=== PATIENT | female | born 1940 | race Caucasian/White ===

== ENCOUNTER → 2016-09-19 | Outpatient (CLI) | payer MEDICARE, OTHER ==
--- NOTE | 2016-09-19 10:15 | MM ---
Reason for exam: additional evaluation requested from prior study. Last mammogram was performed 7 months ago. History: Patient is postmenopausal, has history of breast cancer at age 74, and history of other cancer. Malignant US breast localization RT of the right breast, January 10, 2015. Malignant US biopsy breast VAD RT of the right breast, December 30, 2014. Benign US RT VAD breast biopsy of the right breast, May 27, 2012. Reductions of both breasts, 1982. Excisional biopsy of the right breast. Took estrogen for 2 years beginning at age 38. Physical Findings: Nurse did not find any significant physical abnormalities on exam. MG 3D Diag Mammo W/Cad MAN Bilateral CC and MLO view(s) were taken. XCCL view(s) were taken of the right breast. Prior study comparison: February 28, 2016, bilateral MG 3d diag mammo w/cad MAN. September 19, 2015, bilateral MG 3d diag mammo w/cad MAN. Previous lumpectomy in the right breast. Chronic asymmetry in the left breast. No significant new findings when compared with previous films. These results were verbally communicated with the patient and result sheet given to the patient on 09/19/16. ASSESSMENT: Benign, BI-RAD 2 RECOMMENDATION: Routine screening mammogram of both breasts in 1 year.
== END | disposition home or self-care (01) ==
LOC: RADMAMWWP 09:16
PROVIDERS: ATTEND Radiology Diagnostic Radiology
DX: Z85.3 Personal history of malignant neoplasm of breast (principal)
CPT/HCPCS: G0204; G0279

== ENCOUNTER → 2017-09-24 | Outpatient (CLI) | payer MEDICARE, OTHER ==
--- NOTE | 2017-09-24 12:06 | MM ---
Reason for exam: additional evaluation requested from prior study. Last mammogram was performed 1 year ago. History: Patient is postmenopausal, has history of breast cancer at age 74, and history of other cancer. Malignant US breast localization RT of the right breast, January 10, 2015. Malignant US biopsy breast VAD RT of the right breast, December 30, 2014. Benign US RT VAD breast biopsy of the right breast, May 27, 2012. Reductions of both breasts, 1982. Excisional biopsy of the right breast. Took estrogen for 2 years beginning at age 38. Physical Findings: Nurse did not find any significant physical abnormalities on exam. MG 3D Diag Mammo W/Cad MAN Bilateral CC and MLO view(s) were taken. XCCL view(s) were taken of the right breast. Prior study comparison: September 19, 2016, bilateral MG 3d diag mammo w/cad MAN. February 28, 2016, bilateral MG 3d diag mammo w/cad MAN. There are scattered fibroglandular densities. Stable left focal asymmetry. No suspicious abnormality. Post surgical change on the right breast. These results were verbally communicated with the patient and result sheet given to the patient on 09/24/17. ASSESSMENT: Benign, BI-RAD 2 RECOMMENDATION: Follow-up diagnostic mammogram of both breasts in 1 year.
== END | disposition home or self-care (01) ==
LOC: RADMAMWWP 10:49
PROVIDERS: ATTEND Internal Medicine Hematology & Oncology
DX: Z08 Encounter for follow-up examination after completed treatment for malignant neoplasm (principal); Z85.3 Personal history of malignant neoplasm of breast
CPT/HCPCS: 77066; G0279; 77062

== ENCOUNTER 2017-12-17 14:49 | Emergency (ER) | payer MEDICARE, OTHER ==
[2017-12-17 14:59] VITALS: BP 116/61; PULSE 79; RESP 18; TEMP 98.6
[2017-12-17] MEDS ORDERED: SODIUM CHLORIDE 0.9% 1,000 ML IV STA (15:13)
--- NOTE | 2017-12-17 15:16 | ED ---
General Adult HPI - General Chief complaint: Syncope Stated complaint: near syncope Time Seen by Provider: 12/17/17 14:54 Source: EMS, RN notes reviewed Mode of arrival: EMS Limitations: altered mental status - History of Present Illness Initial comments: Patient is a pleasant 77-year-old female presenting to the emergency Department with near syncopal episode. Patient states she has had some episodes previously that were somewhat similar associated with low blood pressure. Today patient [place] when she felt like she was about to pass out. Patient was helped to the ground by bystanders. Patient has no complaints at this time and feels fine. No headache. No confusion. Patient does have history of dementia. No chest pain or dyspnea. No abdominal pain or weakness. - Related Data Home Medications Medication Instructions Recorded Confirmed Allopurinol [Zyloprim] 100 mg PO DAILY@1200 09/08/14 12/17/17 DULoxetine HCL [Cymbalta] 30 mg PO DAILY 09/08/14 12/17/17 Divalproex Sodium [Depakote] 125 mg PO BID 09/08/14 12/17/17 Famotidine [Pepcid] 20 mg PO HS 09/08/14 12/17/17 Folic Acid 1 mg PO DAILY@1200 09/08/14 12/17/17 Omeprazole [PriLOSEC] 20 mg PO AC-BRKFST 09/08/14 12/17/17 Milk Thistle 1,000 mg PO DAILY@1200 05/05/15 12/17/17 Aspirin EC [Ecotrin Low Dose] 81 mg PO DAILY 03/12/17 12/17/17 Levothyroxine Sodium [Synthroid] 50 mcg PO DAILY@1200 03/12/17 12/17/17 Vitamin B Complex 1 cap PO HS 03/12/17 12/17/17 Calcium Carbonate 1,000 mg PO DAILY 12/17/17 12/17/17 Allergies Allergy/AdvReac Type Severity Reaction Status Date / Time No Known Allergies Allergy Verified 12/17/17 16:05 Review of Systems ROS Statement: Those systems with pertinent positive or pertinent negative responses have been documented in the HPI. ROS Other: All systems not noted in ROS Statement are negative. Constitutional: Denies: fever Eyes: Denies: eye pain ENT: Denies: ear pain Respiratory: Denies: cough Cardiovascular: Denies: chest pain Endocrine: Denies: fatigue Gastrointestinal: Denies: abdominal pain Genitourinary: Denies: dysuria Musculoskeletal: Denies: back pain Skin: Denies: rash Neurological: Denies: headache, weakness Past Medical History Past Medical History: Cancer, Dementia, GERD/Reflux, Hypertension, Liver Disease , Skin Disorder Additional Past Medical History / Comment(s): 2016 closed fracture R hipD/T fall. PSORIASIS, GOUT, hiatal hernia, skin cancer with removal, breast cancer with lumpectomy and radiation, bleeding gastric ulcer 1974, gastritis, esophagitis, diverticulosis, hepatitis unknown type but thinks it may have been hep C from a blood transfusion. History of Any Multi-Drug Resistant Organisms: None Reported Past Surgical History: Appendectomy, Breast Surgery, Cholecystectomy, Hysterectomy, Joint Replacement, Tonsillectomy Additional Past Surgical History / Comment(s): rt leg vein stipping, surgery bleeding ulcer, EGDs with bx and colonoscopies with last time being 08/2014, R breast lumpectomy, cataracts bilaterally with lens implants, rt knee replacement, bilateral breast recuctions. rt femoral head replacement arthroplasty. Past Anesthesia/Blood Transfusion Reactions: No Reported Reaction Additional Past Anesthesia/Blood Transfusion Reaction / Comment(s): Pt received blood in 1974 and contracted hepatitis. Past Psychological History: No Psychological Hx Reported Smoking Status: Never smoker Past Alcohol Use History: Occasional Past Drug Use History: None Reported - Past Family History Father Family Medical History: No Reported History Additional Family Medical History / Comment(s): Father lived to be in his early 90's. Mother Family Medical History: No Reported History Additional Family Medical History / Comment(s): Pt does not know mother's health hx well- mother in her 70's General Exam Limitations: altered mental status General appearance: alert, in no apparent distress Head exam: Present: atraumatic Eye exam: Present: normal appearance, PERRL, EOMI ENT exam: Present: normal oropharynx Neck exam: Present: normal inspection Respiratory exam: Present: normal lung sounds bilaterally Cardiovascular Exam: Present: regular rate, normal rhythm Expanded Peripheral pulses: 2+: Radial (R), Radial (L), Posterior Tibialis (R), Posterior Tibialis (L), Dorsalis Pedis (R), Dorsalis Pedis (L) GI/Abdominal exam: Present: soft. Absent: tenderness Extremities exam: Present: normal inspection. Absent: pedal edema, calf tenderness Neurological exam: Present: alert, oriented X3, CN II-XII intact. Absent: motor sensory deficit Expanded Neurological exam: Present: protecting the airway Patient oriented to: Present: person, place, time Speech: Present: fluid speech Cranial nerves: EOM's Intact: Normal, Facial Sensation: Normal Cerebellar function: Finger to Nose: Normal Sensory exam: Upper Extremity Light Touch: Normal, Lower Extremity Light Touch: Normal Motor strength exam: RUE: 5, LUE: 5, RLE: 5, LLE: 5 Eye Response: (4) open spontaneously Motor Response: (6) obeys commands Verbal Response: (5) oriented Psychiatric exam: Present: normal affect, normal mood Skin exam: Present: normal color Course Vital Signs 12/17/17 14:52 Temperature 98.6 F Pulse Rate 79 Respiratory 18 Rate Blood Pressure 116/61 O2 Sat by Pulse 99 Oximetry EKG Findings - EKG Comments: EKG Findings:: Normal sinus rhythm at 69. OH 162. QRS 76. QT 438. QTC 469. Left axis. Low QRS voltage. Inferior Q waves. No acute ST change. Medical Decision Making - Medical Decision Making Patient reevaluated and resting comfortably in bed. Patient remained symptom- free. Patient and family offered admission however would prefer discharge. There is advised need for close follow-up. Patient states last episode she had similar to this was around 6 months ago where she actually fully passed out and was also evaluated at that time. - Lab Data Result diagrams: 12/17/17 15:03 12/17/17 15:03 Lab Results 12/17/17 12/17/17 12/17/17 Range/Units 15:03 15:03 15:03 WBC 4.5 (3.8-10.6) k/uL RBC 3.62 L (3.80-5.40) m/uL Hgb 12.4 (11.4-16.0) gm/dL Hct 37.0 (34.0-46.0) % MCV 102.3 H (80.0-100.0) fL MCH 34.3 (25.0-35.0) pg MCHC 33.5 (31.0-37.0) g/dL RDW 13.1 (11.5-15.5) % Plt Count 129 L (150-450) k/uL Neutrophils % 61 % Lymphocytes % 27 % Monocytes % 7 % Eosinophils % 2 % Basophils % 1 % Neutrophils # 2.7 (1.3-7.7) k/uL Lymphocytes # 1.2 (1.0-4.8) k/uL Monocytes # 0.3 (0-1.0) k/uL Eosinophils # 0.1 (0-0.7) k/uL Basophils # 0.0 (0-0.2) k/uL Macrocytosis Slight PT (9.0-12.0) sec INR (<1.2) APTT (22.0-30.0) sec Sodium 137 (137-145) mmol/L Potassium 4.7 (3.5-5.1) mmol/L Chloride 103 (98-107) mmol/L Carbon Dioxide 19 L (22-30) mmol/L Anion Gap 15 mmol/L BUN 16 (7-17) mg/dL Creatinine 1.04 (0.52-1.04) mg/dL Est GFR (CKD-EPI)AfAm 60 (>60 ml/min/1.73 sqM) Est GFR (CKD-EPI)NonAf 52 (>60 ml/min/1.73 sqM) Glucose 83 (74-99) mg/dL Calcium 8.6 (8.4-10.2) mg/dL Total Bilirubin 0.5 (0.2-1.3) mg/dL AST 60 H (14-36) U/L ALT 39 (9-52) U/L Alkaline Phosphatase 57 (38-126) U/L Total Creatine Kinase 45 (30-135) U/L CK-MB (CK-2) 1.0 (0.0-2.4) ng/mL CK-MB (CK-2) Rel Index 2.2 Troponin I <0.012 (0.000-0.034) ng/mL Total Protein 6.8 (6.3-8.2) g/dL Albumin 3.9 (3.5-5.0) g/dL 12/17/17 Range/Units 15:03 WBC (3.8-10.6) k/uL RBC (3.80-5.40) m/uL Hgb (11.4-16.0) gm/dL Hct (34.0-46.0) % MCV (80.0-100.0) fL MCH (25.0-35.0) pg MCHC (31.0-37.0) g/dL RDW (11.5-15.5) % Plt Count (150-450) k/uL Neutrophils % % Lymphocytes % % Monocytes % % Eosinophils % % Basophils % % Neutrophils # (1.3-7.7) k/uL Lymphocytes # (1.0-4.8) k/uL Monocytes # (0-1.0) k/uL Eosinophils # (0-0.7) k/uL Basophils # (0-0.2) k/uL Macrocytosis PT 10.9 (9.0-12.0) sec INR 1.1 (<1.2) APTT 18.5 L (22.0-30.0) sec Sodium (137-145) mmol/L Potassium (3.5-5.1) mmol/L Chloride (98-107) mmol/L Carbon Dioxide (22-30) mmol/L Anion Gap mmol/L BUN (7-17) mg/dL Creatinine (0.52-1.04) mg/dL Est GFR (CKD-EPI)AfAm (>60 ml/min/1.73 sqM) Est GFR (CKD-EPI)NonAf (>60 ml/min/1.73 sqM) Glucose (74-99) mg/dL Calcium (8.4-10.2) mg/dL Total Bilirubin (0.2-1.3) mg/dL AST (14-36) U/L ALT (9-52) U/L Alkaline Phosphatase (38-126) U/L Total Creatine Kinase (30-135) U/L CK-MB (CK-2) (0.0-2.4) ng/mL CK-MB (CK-2) Rel Index Troponin I (0.000-0.034) ng/mL Total Protein (6.3-8.2) g/dL Albumin (3.5-5.0) g/dL - Radiology Data Radiology results: report reviewed (Computed tomography scan the brain shows no acute intercranial process. Mild to moderate atrophy. Bilateral frontotemporal lobar degeneration.), image reviewed (Chest x-ray shows cardiomegaly.) Disposition Clinical Impression: Near syncope Disposition: ADMITTED IP TO THIS HOSP Is patient prescribed a controlled substance at d/c from ED?: No Referrals: Amelie Pope DO [Primary Care Provider] - 1-2 days Decision Time: 16:50
[2017-12-17 15:34] LABS: Basophils % (A) 1 %; Eosinophils # (A) 0.1 k/uL (0-0.7); Eosinophils % (A) 2 %; HGB 12.4 gm/dL (11.4-16.0); Lymphocytes # (A) 1.2 k/uL (1.0-4.8); Lymphocytes % (A) 27 %; MCH 34.3 pg (25.0-35.0); MCHC 33.5 g/dL (31.0-37.0); MCV 102.3 fL (80.0-100.0); Macrocytosis Slight; Monocytes # (A) 0.3 k/uL (0-1.0); Monocytes % (A) 7 %; Neutrophils # (A) 2.7 k/uL (1.3-7.7); Neutrophils % (A) 61 %; Platelet Count 129 k/uL (150-450); RBC 3.62 m/uL (3.80-5.40); RDW 13.1 % (11.5-15.5); WBC 4.5 k/uL (3.8-10.6)
[2017-12-17 15:45] LABS: Creatine Kinase 45 U/L (30-135)
[2017-12-17 15:46] LABS: Albumin 3.9 g/dL (3.5-5.0); Calcium 8.6 mg/dL (8.4-10.2); Potassium 4.7 mmol/L (3.5-5.1); Total Bilirubin 0.5 mg/dL (0.2-1.3); Total Protein 6.8 g/dL (6.3-8.2)
--- NOTE | 2017-12-17 15:54 | CT ---
EXAMINATION TYPE: CT brain wo con DATE OF EXAM: 12/17/2017 HISTORY: Near syncopal episodes CT DLP: 1121 mGycm. Automated Exposure Control for Dose Reduction was Utilized. TECHNIQUE: CT scan of the head is performed without contrast. COMPARISON: CT brain March 12, 2017. FINDINGS: There is no acute intracranial hemorrhage or midline shift identified. There is diffuse v entricular and sulcal prominence consistent with diffuse age-related cerebral atrophy. Asymmetric mo re prominent bilateral frontal and temporal lobe atrophy is redemonstrated. There is low-attenuation in the periventricular white matter consistent with chronic small vessel ischemic change. Small muco us retention cyst or polyp posterior right ethmoid sinus axial image 6 remains present. The globes ar e intact and the visualized sinuses otherwise are clear. IMPRESSION: No acute intracranial hemorrhage or midline shift. There is mild to moderate diffuse ag e-related cerebral atrophy and chronic small vessel ischemic change redemonstrated without significan t interval change. Suspect stable more prominent bilateral frontotemporal lobar degeneration, correla te clinically.
[2017-12-17 15:56] LABS: INR 1.1 (<1.2); Prothrombin Time 10.9 sec (9.0-12.0); Troponin I <0.012 ng/mL (0.000-0.034)
[2017-12-17 15:58] LABS: Partial Thromboplastin Time 18.5 sec (22.0-30.0)
--- NOTE | 2017-12-17 16:00 | XR ---
EXAMINATION TYPE: XR chest 2V DATE OF EXAM: 12/17/2017 COMPARISON: Prior chest x-ray 03/12/2017 HISTORY: Syncope TECHNIQUE: Frontal and lateral views of the chest are obtained. FINDINGS: There is no focal air space opacity, pleural effusion, or pneumothorax seen. The cardiac silhouette size is stable and enlarged, size may be accentuated by rotation. Surgical clips present near the gastroesophageal junction, right axilla. Right hemidiaphragm is elevated. Stable finding. Th e osseous structures are intact. IMPRESSION: Cardiomegaly. Postop changes. Additional findings above.
[2017-12-17 16:52] LABS: Appearance,Urine Cloudy (Clear); Bacteria,Urine Many /hpf; Bilirubin,Urine Negative (Negative); Blood,Urine Negative (Negative); Color,Urine Yellow; Glucose,Urine (UA) Negative (Negative); Hyaline Casts,Urine 7 /lpf (0-2); Ketones,Urine Negative (Negative); Leukocyte Esterase,Urine Large (Negative); Mucus,Urine Rare /hpf; Nitrite,Urine Positive (Negative); PH, Urine 5.5 (5.0-8.0); Protein,Urine Negative (Negative); RBC,Urine 1 /hpf (0-5); Specific Gravity,Urine 1.012 (1.001-1.035); Squamous Epithelial Cell,Urine <1 /hpf (0-4); Urobilinogen,Urine <2.0 mg/dL (<2.0); WBC,Urine 71 /hpf (0-5)
--- NOTE | 2017-12-17 16:52 | ED ---
Medical Decision Making - Medical Decision Making Patient was able to ambulate without difficulty in the emergency department. - Lab Data Result diagrams: 12/17/17 15:03 12/17/17 15:03 Lab Results 12/17/17 12/17/17 12/17/17 Range/Units 15:03 15:03 15:03 WBC 4.5 (3.8-10.6) k/uL RBC 3.62 L (3.80-5.40) m/uL Hgb 12.4 (11.4-16.0) gm/dL Hct 37.0 (34.0-46.0) % MCV 102.3 H (80.0-100.0) fL MCH 34.3 (25.0-35.0) pg MCHC 33.5 (31.0-37.0) g/dL RDW 13.1 (11.5-15.5) % Plt Count 129 L (150-450) k/uL Neutrophils % 61 % Lymphocytes % 27 % Monocytes % 7 % Eosinophils % 2 % Basophils % 1 % Neutrophils # 2.7 (1.3-7.7) k/uL Lymphocytes # 1.2 (1.0-4.8) k/uL Monocytes # 0.3 (0-1.0) k/uL Eosinophils # 0.1 (0-0.7) k/uL Basophils # 0.0 (0-0.2) k/uL Macrocytosis Slight PT (9.0-12.0) sec INR (<1.2) APTT (22.0-30.0) sec Sodium 137 (137-145) mmol/L Potassium 4.7 (3.5-5.1) mmol/L Chloride 103 (98-107) mmol/L Carbon Dioxide 19 L (22-30) mmol/L Anion Gap 15 mmol/L BUN 16 (7-17) mg/dL Creatinine 1.04 (0.52-1.04) mg/dL Est GFR (CKD-EPI)AfAm 60 (>60 ml/min/1.73 sqM) Est GFR (CKD-EPI)NonAf 52 (>60 ml/min/1.73 sqM) Glucose 83 (74-99) mg/dL Calcium 8.6 (8.4-10.2) mg/dL Total Bilirubin 0.5 (0.2-1.3) mg/dL AST 60 H (14-36) U/L ALT 39 (9-52) U/L Alkaline Phosphatase 57 (38-126) U/L Total Creatine Kinase 45 (30-135) U/L CK-MB (CK-2) 1.0 (0.0-2.4) ng/mL CK-MB (CK-2) Rel Index 2.2 Troponin I <0.012 (0.000-0.034) ng/mL Total Protein 6.8 (6.3-8.2) g/dL Albumin 3.9 (3.5-5.0) g/dL 12/17/17 Range/Units 15:03 WBC (3.8-10.6) k/uL RBC (3.80-5.40) m/uL Hgb (11.4-16.0) gm/dL Hct (34.0-46.0) % MCV (80.0-100.0) fL MCH (25.0-35.0) pg MCHC (31.0-37.0) g/dL RDW (11.5-15.5) % Plt Count (150-450) k/uL Neutrophils % % Lymphocytes % % Monocytes % % Eosinophils % % Basophils % % Neutrophils # (1.3-7.7) k/uL Lymphocytes # (1.0-4.8) k/uL Monocytes # (0-1.0) k/uL Eosinophils # (0-0.7) k/uL Basophils # (0-0.2) k/uL Macrocytosis PT 10.9 (9.0-12.0) sec INR 1.1 (<1.2) APTT 18.5 L (22.0-30.0) sec Sodium (137-145) mmol/L Potassium (3.5-5.1) mmol/L Chloride (98-107) mmol/L Carbon Dioxide (22-30) mmol/L Anion Gap mmol/L BUN (7-17) mg/dL Creatinine (0.52-1.04) mg/dL Est GFR (CKD-EPI)AfAm (>60 ml/min/1.73 sqM) Est GFR (CKD-EPI)NonAf (>60 ml/min/1.73 sqM) Glucose (74-99) mg/dL Calcium (8.4-10.2) mg/dL Total Bilirubin (0.2-1.3) mg/dL AST (14-36) U/L ALT (9-52) U/L Alkaline Phosphatase (38-126) U/L Total Creatine Kinase (30-135) U/L CK-MB (CK-2) (0.0-2.4) ng/mL CK-MB (CK-2) Rel Index Troponin I (0.000-0.034) ng/mL Total Protein (6.3-8.2) g/dL Albumin (3.5-5.0) g/dL Disposition Clinical Impression: Near syncope Disposition: HOME SELF-CARE Condition: Stable Instructions: Near Syncope (ED) Additional Instructions: Please follow-up with primary care physician in the next day or 2 for recheck. Return for passing out, confusion, weakness, chest pain, difficulty breathing, abdominal pain, worsening or changing symptoms or other concerns. Is patient prescribed a controlled substance at d/c from ED?: No Referrals: Amelie Pope DO [Primary Care Provider] - 1-2 days Time of Disposition: 16:52
== END 2017-12-17 17:06 | disposition home or self-care (01) ==
LOC: EC 14:49
DX: R55 Syncope and collapse (principal); F03.90 Unspecified dementia, unspecified severity, without behavioral disturbance, psychotic disturbance, mood disturbance, and anxiety; K21.9 Gastro-esophageal reflux disease without esophagitis; M10.9 Gout, unspecified; Z85.3 Personal history of malignant neoplasm of breast; Z85.828 Personal history of other malignant neoplasm of skin; Z96.651 Presence of right artificial knee joint; Z90.49 Acquired absence of other specified parts of digestive tract; Z90.710 Acquired absence of both cervix and uterus; Z98.890 Other specified postprocedural states; Z79.82 Long term (current) use of aspirin; Z79.899 Other long term (current) drug therapy
CPT/HCPCS: 36415; 51701; 70450; 71046; 80053; 81001; 82550; 82553; 84484; 85025; 85610; 85730; 93005; 96360; 99285

== ENCOUNTER 2018-01-21 08:34 | Emergency (ER) | payer MEDICARE ==
[2018-01-21 08:39] VITALS: RESP 18
--- NOTE | 2018-01-21 08:57 | ED ---
General Adult HPI - General Chief complaint: Fall Stated complaint: fall from bed, facial injury Time Seen by Provider: 01/21/18 08:41 Source: patient, RN notes reviewed Mode of arrival: wheelchair Limitations: no limitations - History of Present Illness Initial comments: Patient 78-year-old female presented to the emergency room today with a chief complaint of injury to the left side of the face that occurred this morning approximately 3 hours ago. Patient does admit that she rolled when she was in bed and fell out hitting the left side of her head against the nightstand. She does admit that it did cause a small superficial cut. She states her tetanus is up-to-date. She states there was no loss of consciousness. She does admit to some bruising some swelling to left cheek area. Patient admits to hitting the left knee but states that it feels fine. Does admit to history of arthritis in his knees states does not feel any different. Has been ambulating able to bear weight. She denies any other complaints or symptoms. Patient denies any recent fever, chills, shortness of breath, chest pain, back pain, abdominal pain, nausea or vomiting, numbness or tingling, headaches or visual changes, or any other complaints. - Related Data Home Medications Medication Instructions Recorded Confirmed Allopurinol [Zyloprim] 100 mg PO HS 09/08/14 01/21/18 DULoxetine HCL [Cymbalta] 30 mg PO DAILY 09/08/14 01/21/18 Divalproex Sodium [Depakote] 125 mg PO BID 09/08/14 01/21/18 Famotidine [Pepcid] 20 mg PO HS 09/08/14 01/21/18 Folic Acid 1 mg PO HS 09/08/14 01/21/18 Omeprazole [PriLOSEC] 20 mg PO AC-BRKFST 09/08/14 01/21/18 Milk Thistle 1,000 mg PO HS 05/05/15 01/21/18 Aspirin EC [Ecotrin Low Dose] 81 mg PO DAILY 03/12/17 01/21/18 Levothyroxine Sodium [Synthroid] 50 mcg PO DAILY 03/12/17 01/21/18 Vitamin B Complex 1 cap PO HS 03/12/17 01/21/18 Calcium Carbonate 1,000 mg PO DAILY 12/17/17 01/21/18 Allergies Allergy/AdvReac Type Severity Reaction Status Date / Time No Known Allergies Allergy Verified 01/21/18 09:19 Review of Systems ROS Statement: Those systems with pertinent positive or pertinent negative responses have been documented in the HPI. ROS Other: All systems not noted in ROS Statement are negative. Past Medical History Past Medical History: Cancer, Dementia, GERD/Reflux, Hypertension, Liver Disease , Skin Disorder Additional Past Medical History / Comment(s): 2016 closed fracture R hipD/T fall. PSORIASIS, GOUT, hiatal hernia, skin cancer with removal, breast cancer with lumpectomy and radiation, bleeding gastric ulcer 1974, gastritis, esophagitis, diverticulosis, hepatitis unknown type but thinks it may have been hep C from a blood transfusion. History of Any Multi-Drug Resistant Organisms: None Reported Past Surgical History: Appendectomy, Breast Surgery, Cholecystectomy, Hysterectomy, Joint Replacement, Tonsillectomy Additional Past Surgical History / Comment(s): rt leg vein stipping, surgery bleeding ulcer, EGDs with bx and colonoscopies with last time being 08/2014, R breast lumpectomy, cataracts bilaterally with lens implants, rt knee replacement, bilateral breast recuctions. rt femoral head replacement arthroplasty. Past Anesthesia/Blood Transfusion Reactions: No Reported Reaction Additional Past Anesthesia/Blood Transfusion Reaction / Comment(s): Pt received blood in 1974 and contracted hepatitis. Past Psychological History: No Psychological Hx Reported Smoking Status: Never smoker Past Alcohol Use History: Occasional Past Drug Use History: None Reported - Past Family History Father Family Medical History: No Reported History Additional Family Medical History / Comment(s): Father lived to be in his early 90's. Mother Family Medical History: No Reported History Additional Family Medical History / Comment(s): Pt does not know mother's health hx well- mother in her 70's General Exam - General Exam Comments Initial Comments: General: The patient is awake and alert, in no distress, and does not appear acutely ill. Eye: Pupils are equal, round and reactive to light. Extra-ocular movements are intact. No nystagmus. There is normal conjunctiva bilaterally. No signs of icterus. Mild tenderness over the lateral superior and inferior orbital bones. Ears, nose, mouth and throat: There are moist mucous membranes and no oral lesions. Patient does have some moderate swelling to left lateral cheek. There is some bruising green in color. Tender locally over the lateral cheek. Neck: The neck is supple, there is no tenderness or JVD. Cardiovascular: There is a regular rate and rhythm. No murmur, rub or gallop is appreciated. Respiratory: Lungs are clear to auscultation, respirations are non-labored, breath sounds are equal. No wheezes, stridor, rales, or rhonchi. Musculoskeletal: Normal ROM, no tenderness. No tenderness to the cervical thoracic or lumbar spine. No step-off or deformity. Sensation intact. Strength 5/5. Pulses equal bilaterally 2+. Neurological: A&O x 3. CN II-XII intact, There are no obvious motor or sensory deficits. Coordination appears grossly intact. Speech is normal. Skin: Skin is warm and no rashes. There is a laceration superficial to the left cheek area measures approximate a centimeter no active bleeding. Psychiatric: Cooperative, appropriate mood & affect, normal judgment. Limitations: no limitations Course Vital Signs 01/21/18 08:35 Temperature 97.7 F Pulse Rate 77 Respiratory 18 Rate Blood Pressure 142/67 O2 Sat by Pulse 98 Oximetry Medical Decision Making - Medical Decision Making Patient reexamined the center no signs of distress. She is resting comfortable. Patient's CT of the head, neck, facial bones are negative for any acute abnormality. Patient's laceration left side of the face was cleaned by nurses and Steri-Strip placed over top. No need for sutures. Her tetanus is up -to-date. Patient will be discharged home advise follow family physician return here to emergency room if any symptoms increase worsen or for any other concerns. Disposition Clinical Impression: Facial contusion, Facial laceration Disposition: HOME SELF-CARE Condition: Good Instructions: Contusion in Adults (ED) Additional Instructions: Please use ice to the affected area and topical Neosporin to cut as discussed. Please return here to the emergency room if any symptoms increase or worsen or follow-up family physician next 2 days. Is patient prescribed a controlled substance at d/c from ED?: No Referrals: Amelie Pope DO [Primary Care Provider] - 1-2 days Time of Disposition: 09:58
--- NOTE | 2018-01-21 09:43 | CT ---
EXAMINATION TYPE: CT brain inez aceves con DATE OF EXAM: 01/21/2018 COMPARISON: 12/17/2017 HISTORY: Fall out of bed CT DLP: 2038.[address] of the brain was performed. The ventricles, basal cisterns and sulci overlying the cerebral convexities demonstrate mild enlargem ent. There is no evidence for intracranial hemorrhage or sulcal effacement. There is decreased attenuatio n about the periventricular white matter and deep white matter of both cerebral hemispheres, compatib le with chronic small vessel ischemia. No mass effects are seen. If symptoms persist consider MRI. Osseous calvarium is intact. IMPRESSION: 1. Age related atrophic and chronic small vessel ischemic change without acute intracranial process seen at this time. CT Cervical Spine: Unenhanced CT of the cervical spine was performed with bone and soft tissue window settings submitted . Coronal and sagittal reconstruction is obtained. There is normal alignment and prevertebral soft tissues. No evidence for acute cervical fracture . Scattered degenerative disc disease and spondylosis. Biapical scarring. IMPRESSION: 1. No evidence for acute fracture or subluxation of the cervical spine.
--- NOTE | 2018-01-21 09:45 | CT ---
EXAMINATION TYPE: CT facial bones wo con DATE OF EXAM: 01/21/2018 COMPARISON: None HISTORY: Fall from bed CT DLP: 2038.[address] of the facial bones was performed in the axial and coronal planes. Bone and soft tissu e window settings are submitted. No significant soft tissue swelling is appreciated. I do not see evidence for displaced facial bone fracture or depressed facial bone fracture. The globes are intact. Mild mucosal thickening right maxillary sinus. IMPRESSION: 1. No evidence for depressed or displaced facial bone fracture.
[2018-01-21 10:09] VITALS: BP 136/55; PULSE 68; TEMP 97.9
== END 2018-01-21 10:07 | disposition home or self-care (01) ==
LOC: EC 08:34
DX: S01.412A Laceration without foreign body of left cheek and temporomandibular area, initial encounter (principal); F03.90 Unspecified dementia, unspecified severity, without behavioral disturbance, psychotic disturbance, mood disturbance, and anxiety; I10 Essential (primary) hypertension; K21.9 Gastro-esophageal reflux disease without esophagitis; Z85.828 Personal history of other malignant neoplasm of skin; Z85.3 Personal history of malignant neoplasm of breast; Z86.19 Personal history of other infectious and parasitic diseases; Z79.82 Long term (current) use of aspirin; Z79.899 Other long term (current) drug therapy; Z96.651 Presence of right artificial knee joint; Z96.7 Presence of other bone and tendon implants; W06.XXXA Fall from bed, initial encounter
CPT/HCPCS: 70450; 70486; 72125; 99283

== ENCOUNTER 2018-09-09 16:02 | Emergency (ER) | payer MEDICARE ==
[2018-09-09] MEDS ORDERED: MORPHINE SULFATE 4 MG/ML SYRINGE IVP STA (16:31)
[2018-09-09 16:32] VITALS: PULSE 77; RESP 18
--- NOTE | 2018-09-09 16:56 | XR ---
EXAMINATION TYPE: XR ankle limited RT DATE OF EXAM: 09/09/2018 COMPARISON: NONE HISTORY: Ankle pain TECHNIQUE: 2 views FINDINGS: There is transverse fracture of the distal shaft of the fibula with 50% lateral displacemen t of the distal fragment. Ankle mortise is anatomic. There is a plantar calcaneal spur. IMPRESSION: Acute fracture distal fibula.
--- NOTE | 2018-09-09 18:11 | ED ---
Lower Extremity Injury HPI - General Chief Complaint: Extremity Injury, Lower Stated Complaint: Fall Injured Rt Foot Time Seen by Provider: 09/09/18 16:23 Source: patient, EMS Mode of arrival: EMS Limitations: no limitations - History of Present Illness Initial Comments: Patient is a 78-year-old female presenting to the ER via EMS after falling and injuring her right ankle today. Patient [place] and went into the bathroom. As she was trying to stand up off the toilet she grabbed onto the handrail, and then slipped on something causing her to fall and injuring her right ankle. Patient was unable to get up on her own. Patient is able to wiggle her toes. No previous history of right ankle injuries. No other complaints at this time. Patient denies hitting her head. - Related Data Home Medications Medication Instructions Recorded Confirmed Allopurinol [Zyloprim] 100 mg PO HS 09/08/14 09/09/18 DULoxetine HCL [Cymbalta] 30 mg PO DAILY 09/08/14 09/09/18 Divalproex Sodium [Depakote] 125 mg PO BID 09/08/14 09/09/18 Famotidine [Pepcid] 20 mg PO HS 09/08/14 09/09/18 Omeprazole [PriLOSEC] 20 mg PO AC-BRKFST 09/08/14 09/09/18 Levothyroxine Sodium [Synthroid] 50 mcg PO DAILY 03/12/17 09/09/18 Vitamin B Complex 1 cap PO HS 03/12/17 09/09/18 Folic Acid 0.8 mg PO HS 09/09/18 09/09/18 Milk Thistle 300 mg PO DAILY@1200 09/09/18 09/09/18 Previous Rx's Medication Instructions Recorded Hydrocodone/Acetaminophen [Vancleave 1 tab PO Q6HR PRN #10 tab 09/09/18 5-325] Allergies Allergy/AdvReac Type Severity Reaction Status Date / Time No Known Allergies Allergy Verified 09/09/18 16:14 Review of Systems ROS Statement: Those systems with pertinent positive or pertinent negative responses have been documented in the HPI. ROS Other: All systems not noted in ROS Statement are negative. Past Medical History Past Medical History: Cancer, Dementia, GERD/Reflux, Hypertension, Liver Disease, Skin Disorder Additional Past Medical History / Comment(s): 2016 closed fracture R hipD/T fall. PSORIASIS, GOUT, hiatal hernia, skin cancer with removal, breast cancer with lumpectomy and radiation, bleeding gastric ulcer 1974, gastritis, esophagitis, diverticulosis, hepatitis unknown type but thinks it may have been hep C from a blood transfusion. History of Any Multi-Drug Resistant Organisms: None Reported Past Surgical History: Appendectomy, Breast Surgery, Cholecystectomy, Hysterectomy, Joint Replacement, Tonsillectomy Additional Past Surgical History / Comment(s): rt leg vein stipping, surgery bleeding ulcer, EGDs with bx and colonoscopies with last time being 08/2014, 01/10/15 R breast lumpectomy, cataracts bilaterally with lens implants, rt knee replacement, bilateral breast recuctions. rt femoral head replacement arthroplasty. Past Anesthesia/Blood Transfusion Reactions: No Reported Reaction Additional Past Anesthesia/Blood Transfusion Reaction / Comment(s): Pt received blood in 1974 and contracted hepatitis. Past Psychological History: No Psychological Hx Reported Smoking Status: Never smoker Past Alcohol Use History: Occasional Past Drug Use History: None Reported - Past Family History Father Family Medical History: No Reported History Additional Family Medical History / Comment(s): Father lived to be in his early 90's. Mother Family Medical History: No Reported History Additional Family Medical History / Comment(s): Pt does not know mother's health hx well- mother in her 70's General Exam - General Exam Comments Initial Comments: GENERAL: Well-appearing, well-nourished and in no acute distress. HEAD: Atraumatic, normocephalic. EYES: Pupils equal round and reactive to light, extraocular movements intact, sclera anicteric, conjunctiva are normal. ENT: TMs normal, nares patent, oropharynx clear without exudates. Moist mucous membranes. NECK: Normal range of motion, supple without lymphadenopathy or JVD. LUNGS: Breath sounds clear to auscultation bilaterally and equal. No wheezes rales or rhonchi. HEART: Regular rate and rhythm without murmurs, rubs or gallops. ABDOMEN: Soft, nontender, normoactive bowel sounds. No guarding, no rebound. No masses appreciated. : Deferred EXTREMITIES: Pain with palpation over lateral and anterior aspect of the right ankle. Moderate swelling of the right ankle joint. Normal toe range of motion. Normal sensation. Neurovascular intact. NEUROLOGICAL: Cranial nerves II through XII grossly intact. Normal speech, normal gait. PSYCH: Normal mood, normal affect. SKIN: Warm, Dry, normal turgor, no rashes or lesions noted. Limitations: no limitations Course Vital Signs 09/09/18 09/09/18 09/09/18 16:05 16:30 17:00 Temperature 97.4 F L Pulse Rate 77 Respiratory 18 Rate Blood Pressure 120/67 120/67 120/55 O2 Sat by Pulse 98 98 Oximetry 09/09/18 09/09/18 09/09/18 17:30 18:00 18:18 Temperature 98.6 F Pulse Rate 77 Respiratory 18 Rate Blood Pressure 114/61 116/58 134/75 O2 Sat by Pulse 99 100 98 Oximetry Medical Decision Making - Medical Decision Making Patient is a 78-year-old female presents to the ER after falling and injuring her right ankle today. Patient states she slipped on something after trying to stand up from the toilet, and injured her right ankle. Patient denies any other injuries from the fall. Patient is neurovascularly intact and is able to wiggle her toes. X-ray of the right ankle shows a transverse fracture of the distal shaft of the fibula with 50% lateral displacement of the distal fragment. Patient was placed in a short leg splint and will follow up with orthopedics in the morning. Patient counseled on return parameters. Patient and was okay with this plan. Case discussed with Dr. Nur. Disposition Clinical Impression: Closed fracture of right distal fibula, Right ankle pain Disposition: HOME SELF-CARE Condition: Stable Instructions (If sedation given, give patient instructions): Ankle Fracture (ED) Additional Instructions: Please return to the Emergency Department if symptoms worsen or any other concerns. Follow-up with orthopedics in the morning. Prescriptions: Hydrocodone/Acetaminophen [Vancleave 5-325] 1 tab PO Q6HR PRN #10 tab PRN Reason: Pain Is patient prescribed a controlled substance at d/c from ED?: Yes When asked, does pt state using other controlled substances?: No If prescribed controlled substance>3 days was MAPS reviewed?: Prescribed <3 Days If opioid is for acute pain is fill amount 7 days or less?: Yes If Rx opioid, was Start Talking consent form obtained?: Yes Referrals: Amelie Pope, [Primary Care Provider] - 1-2 days Chas Salmeron MD [STAFF PHYSICIAN] - 1-2 days
[2018-09-09 18:35] VITALS: BP 134/75; TEMP 98.6
== END 2018-09-09 18:20 | disposition home or self-care (01) ==
LOC: EC 16:02
DX: S82.831A Other fracture of upper and lower end of right fibula, initial encounter for closed fracture (principal); K21.9 Gastro-esophageal reflux disease without esophagitis; M10.9 Gout, unspecified; Z95.828 Presence of other vascular implants and grafts; Z85.3 Personal history of malignant neoplasm of breast; Z96.651 Presence of right artificial knee joint; Z96.641 Presence of right artificial hip joint; Z79.890 Hormone replacement therapy; Z79.899 Other long term (current) drug therapy; W01.0XXA Fall on same level from slipping, tripping and stumbling without subsequent striking against object, initial encounter; X50.1XXA Overexertion from prolonged static or awkward postures, initial encounter; Y92.002 Bathroom of unspecified non-institutional (private) residence as the place of occurrence of the external cause
CPT/HCPCS: 73600; 99283; 29515; 96374; J2270

== ENCOUNTER → 2018-09-30 | Outpatient (CLI) | payer MEDICARE ==
--- NOTE | 2018-09-30 11:29 | MM ---
Reason for exam: additional evaluation requested from prior study. Last mammogram was performed 1 year ago. History: Patient is postmenopausal, has history of breast cancer at age 74, and history of other cancer. Malignant US breast localization RT of the right breast, January 10, 2015. Malignant US biopsy breast VAD RT of the right breast, December 30, 2014. Benign US RT VAD breast biopsy of the right breast, May 27, 2012. Reductions of both breasts, 1982. Excisional biopsy of the right breast. Took estrogen for 2 years beginning at age 38. Physical Findings: Nurse did not find any significant physical abnormalities on exam. MG 3D Diag Mammo W/Cad MAN Bilateral CC and MLO view(s) were taken. XCCL view(s) were taken of the right breast. Prior study comparison: September 24, 2017, bilateral MG 3d diag mammo w/cad MAN. September 19, 2016, bilateral MG 3d diag mammo w/cad MAN. There are scattered fibroglandular densities. Benign appearing bilateral calcifications. Right biopsy marker. Post therapy change on the right. These results were verbally communicated with the patient and result sheet given to the patient on 09/30/18. ASSESSMENT: Benign, BI-RAD 2 RECOMMENDATION: Follow-up diagnostic mammogram of both breasts in 1 year.
== END | disposition home or self-care (01) ==
LOC: RADMAMWWP 10:45
PROVIDERS: ATTEND Radiology Diagnostic Radiology
DX: Z85.3 Personal history of malignant neoplasm of breast (principal)
CPT/HCPCS: 77066; G0279; 77062

== ENCOUNTER → 2019-10-07 | Outpatient (CLI) | payer MEDICARE ==
--- NOTE | 2019-10-07 13:52 | MM ---
Reason for exam: additional evaluation requested from prior study. Last mammogram was performed 1 year ago. History: Patient is postmenopausal, has history of breast cancer at age 74, and history of other cancer. Malignant US breast localization RT of the right breast, January 10, 2015. Malignant US biopsy breast VAD RT of the right breast, December 30, 2014. Benign US RT VAD breast biopsy of the right breast, May 27, 2012. Reductions of both breasts, 1982. Excisional biopsy of the right breast. Took estrogen for 2 years beginning at age 38. Physical Findings: Nurse did not find any significant physical abnormalities on exam. MG 3D Diag Mammo W/Cad MAN Bilateral CC and MLO view(s) were taken. Prior study comparison: September 30, 2018, bilateral MG 3d diag mammo w/cad MAN. September 24, 2017, bilateral MG 3d diag mammo w/cad MAN. The breast tissue is heterogeneously dense. This may lower the sensitivity of mammography. Stable post operative changes right breast. New nodule 6 o'clock left breast 6.5cm from nipple. These results were verbally communicated with the patient and result sheet given to the patient on 10/07/19. ASSESSMENT: Incomplete: need additional imaging evaluation, BI-RAD 0 RECOMMENDATION: Ultrasound of the left breast.
--- NOTE | 2019-10-07 13:54 | USB ---
Reason for exam: additional evaluation requested from abnormal screening. History: Patient is postmenopausal, has history of breast cancer at age 74, and history of other cancer. Malignant US breast localization RT of the right breast, January 10, 2015. Malignant US biopsy breast VAD RT of the right breast, December 30, 2014. Benign US RT VAD breast biopsy of the right breast, May 27, 2012. Reductions of both breasts, 1982. Excisional biopsy of the right breast. Took estrogen for 2 years beginning at age 38. US Breast Limited LT Left limited breast ultrasound including focal area of concern, retroareolar and axilla demonstrates a 4 x 3 x 4mm irregular, solid, hypoechoic lesion at 6 o'clock. These results were verbally communicated with the patient and result sheet given to the patient on 10/07/19. ASSESSMENT: Suspicious, BI-RAD 4 RECOMMENDATION: Ultrasound core biopsy of both breasts. Called Dr. Ceja's office with mammographic findings and has scheduled an appointment for the patient for 10/13/19 at 2:[address] Martins. PRELIMINARY REPORT CALLED AND FAXED TO DR. MARTINS ON 10/07/19.
== END | disposition home or self-care (01) ==
LOC: RADMAMWWP 10:44
PROVIDERS: ATTEND Radiology Diagnostic Radiology
DX: R92.8 Other abnormal and inconclusive findings on diagnostic imaging of breast (principal); Z85.3 Personal history of malignant neoplasm of breast
CPT/HCPCS: 77066; 76642; G0279; 77062

== ENCOUNTER → 2019-10-23 | Day surgery (SDC) | payer MEDICARE ==
[2019-10-23 09:56] VITALS: RESP 12
[2019-10-23 11:14] VITALS: BP 112/71; PULSE 74; TEMP 98.3
--- NOTE | 2019-10-23 11:26 | USB ---
EXAMINATION TYPE: US biopsy breast VAD LT, MG diagnostic mammo LT wo CAD DATE OF EXAM: 10/23/2019 CLINICAL HISTORY: R92.8 Abnormal Mammogram. TECHNIQUE: Ultrasound guided core biopsy of left 6:00 breast. COMPARISON: NONE FINDINGS: The procedure of ultrasound guided core biopsy was explained to the patient. Benefits, alt ernatives, and risks were discussed. An informed consent was then obtained. The patient was placed in supine positioning for imaging and for the procedure. The overlying skin w as prepped and draped in usual sterile fashion. Lidocaine buffered with bicarbonate was used as anes thetic into the skin and subcutaneous tissue up to area of concern in the left 6:00 breast. A donald w as made with surgical scalpel. Under ultrasound guidance, a 12-gauge vacuum assisted biopsy gun device was used to obtain [address]es. Following this, a biopsy clip was left in lesion. The patient tolerated the procedure well without any immediate complication. The patient was kept in the radiology department for short stay after the procedure and then discharged home in stable condi tion. IMPRESSION: Successful, uncomplicated ultrasound guided core biopsy of area of concern in the left 6: 00 breast, full pathology results to follow.
== END ==
LOC: RADUSWWP 09:34
PROVIDERS: ATTEND Surgery
DX: D05.02 Lobular carcinoma in situ of left breast (principal)
CPT/HCPCS: 88305; 88342; 88341; 77065; 19083; A4648; J2001

== ENCOUNTER 2019-11-25 06:59 | Day surgery (SDC) | payer MEDICARE ==
[2019-11-20 11:57] VITALS: BMI 26.6
[~2019-11-25 06:59] MED LIST: ACETAMINOPHEN TAB 500 MG TAB PO ONE; DEXAMETHASONE SOD PHOSPHATE 10 MG/ML 1 ML VIAL IV ONE; HEPARIN SODIUM,PORCINE 5,000 UNIT/ML 1 ML VIAL SQ ONE; HYDROmorphone 0.5 MG/0.5 ML SYRINGE IVP PRN; LACTATED RINGERS 1,000 ML IV SCH; MIDAZOLAM 2 MG/2 ML VIAL IV PRN; ONDANSETRON 4 MG/2 ML VIAL IVP ONE; Pre Op ABX Message 1 EACH MISC MISCELLANE ONE
[2019-11-25] MEDS ORDERED: ALPRAZolam 0.25 MG TAB PO ONE (07:45)
[2019-11-25] MEDS ORDERED: LIDOCAINE 1% (10MG/ML) FOR IV START INTRADERMA ONE (07:51)
[2019-11-25] MEDS ORDERED: ONDANSETRON 4 MG/2 ML VIAL ONE (07:52)
[2019-11-25] MEDS ORDERED: ALPRAZolam 0.25 MG TAB ONE (07:52)
[2019-11-25] MEDS ORDERED: HEPARIN SODIUM,PORCINE 5,000 UNIT/ML 1 ML VIAL ONE (07:52)
--- NOTE | 2019-11-25 08:04 | P.GSHP ---
History of Present Illness H&P Date: 11/25/19 Chief Complaint: Left breast cancer This is an 79-year-old female who presents today for left breast lumpectomy with sentinel node biopsy. Patient was recently diagnosed left breast cancer. Patient's previous history of right breast cancer. Patient was given different treatment options and opted undergo lumpectomy. Past Medical History Past Medical History: Cancer, Dementia, GERD/Reflux, Hypertension, Liver Disease, Skin Disorder Additional Past Medical History / Comment(s): 2016 closed fracture R hipD/T fall. states walks with a limp r/t right leg shorter. PSORIASIS, GOUT, hiatal hernia, skin cancer with removal, breast cancer with lumpectomy and radiation right,(2014) bleeding gastric ulcer 1974, gastritis, esophagitis, diverticulosis, hepatitis unknown type but thinks it may have been hep C from a blood transfusion. History of Any Multi-Drug Resistant Organisms: None Reported Past Surgical History: Appendectomy, Breast Surgery, Cholecystectomy, Hysterectomy, Joint Replacement, Tonsillectomy Additional Past Surgical History / Comment(s): rt leg vein stipping, surgery bleeding ulcer, EGDs with bx and colonoscopies with last time being 08/2014, 01/10/15 R breast lumpectomy, cataracts bilaterally with lens implants, rt knee replacement, bilateral breast reductions. rt femoral head replacement arthroplasty. Past Anesthesia/Blood Transfusion Reactions: No Reported Reaction Additional Past Anesthesia/Blood Transfusion Reaction / Comment(s): Pt received blood in 1974 and contracted hepatitis. Smoking Status: Never smoker - Past Family History Father Family Medical History: No Reported History Additional Family Medical History / Comment(s): Father lived to be in his early 90's. Mother Family Medical History: No Reported History Additional Family Medical History / Comment(s): Pt does not know mother's health hx well- mother in her 70's Medications and Allergies Home Medications Medication Instructions Recorded Confirmed Type DULoxetine HCL [Cymbalta] 30 mg PO DAILY 09/08/14 11/20/19 History Divalproex Sodium [Depakote] 125 mg PO BID 09/08/14 11/20/19 History Famotidine [Pepcid] 20 mg PO HS 09/08/14 11/20/19 History Omeprazole [PriLOSEC] 20 mg PO AC-BRKFST 09/08/14 11/20/19 History allopurinoL [Zyloprim] 100 mg PO HS 09/08/14 11/20/19 History Levothyroxine Sodium [Synthroid] 50 mcg PO DAILY 03/12/17 11/20/19 History Folic Acid 0.8 mg PO HS 09/09/18 11/20/19 History Calcium Carbonate [Calcium] 600 mg PO BID 10/19/19 11/20/19 History Cholecalciferol (Vitamin D3) 125 mcg PO WE 10/19/19 11/20/19 History [Vitamin D3] Milk Thistle 150 mg PO BID 10/19/19 11/20/19 History Montelukast [Singulair] 10 mg PO DAILY 10/19/19 11/20/19 History Allergies Allergy/AdvReac Type Severity Reaction Status Date / Time No Known Allergies Allergy Verified 11/25/19 07:40 Surgical - Exam Vital Signs Temp Pulse Resp BP Pulse Ox 97.5 F L 72 18 178/63 98 11/25/19 07:45 11/25/19 07:45 11/25/19 07:45 11/25/19 07:45 11/25/19 07:45 - General well developed, well nourished, no distress - Eyes PERRL - ENT normal pinna - Neck no masses - Respiratory normal expansion - Cardiovascular Rhythm: regular - Abdomen Abdomen: soft, non tender - Integumentary Left breast within normal limits there is no masses palpated. Previous history of right mastectomy Assessment and Plan Assessment: Left breast cancer. Patient will undergo left breast lumpectomy with sentinel node biopsy.
[2019-11-25] MEDS ORDERED: ACETAMINOPHEN TAB 500 MG TAB ONE (08:11)
[2019-11-25] MEDS ORDERED: LIDOCAINE 1% INJ 10MG/ML (20 ML MDV) SQ ONE (09:10)
[2019-11-25] MEDS ORDERED: GLYCOPYRROLATE 0.2 MG/ML 2 ML VIAL ONE (10:00)
[2019-11-25] MEDS ORDERED: LIDOCAINE 1% INJ 10MG/ML (20 ML MDV) ONE (10:00)
[2019-11-25] MEDS ORDERED: MIDAZOLAM 2 MG/2 ML VIAL ONE (10:00)
[2019-11-25] MEDS ORDERED: fentaNYL (PF) 50 MCG/ML 2 ML AMP ONE (10:00)
[2019-11-25] MEDS ORDERED: KETOROLAC 15 MG/ML 1 ML VIAL ONE (10:00)
[2019-11-25] MEDS ORDERED: PROPOFOL 10 MG/ML 20 ML VIAL IV ONE (10:00)
--- NOTE | 2019-11-25 10:10 | NM ---
EXAMINATION TYPE: NM sentinel node injection DATE OF EXAM: 11/25/2019 COMPARISON: NONE HISTORY: BREAST CA TECHNIQUE AND FINDINGS: The procedure of sentinel lymph node injection was explained to the patient. The benefits, alternatives, and risks were discussed. An informed consent was then obtained. Overlying skin is cleaned with sterile alcohol. Following this, 482 uCi Tc99m Tilmanocept was inject ed in the upper outer aspect of the left nipple intradermally. The patient tolerated the procedure well without any immediate complication. The patient was kept in the radiology department for short stay after the procedure and then taken to surgery for surgical p rocedure what is presumed intraoperative gamma probe will be used for sentinel lymph node detection. IMPRESSION: Left breast radiotracer injection for sentinel node localization as above.
[2019-11-25] MEDS ORDERED: SODIUM CHLORIDE 0.9% 100 ML with ceFAZolin 2,000 MG IV ONE ×2 (10:17)
[2019-11-25] MEDS ORDERED: BUPIVACAINE (PF) 0.25% 30 ML VIAL SQ ONE (10:35)
--- NOTE | 2019-11-25 11:26 | P.OP ---
Date of Procedure: 11/25/19 Preoperative Diagnosis: Left breast cancer Postoperative Diagnosis: Left breast cancer Procedure(s) Performed: Left breast needle localized lumpectomy with sentinel node biopsy Anesthesia: KEM Surgeon: Benjie Martins Estimated Blood Loss (ml): 20 Pathology: other (Left breast lumpectomy, sentinel node biopsy) Condition: stable Disposition: PACU Description of Procedure: The patient's placed on the operative table in the supine position. She received general anesthesia. Her left breast and examined were prepped and draped in sterile fashion. The patient had been previously targeted by radiology. Patient unable wire located near the 6 o'clock position of the breast. A skin incision was made at the wire site and the core tissue around the wire was achieved by using the Harmonic scissors and the plantar cautery. The specimen was painted and then sent to mammography. The Clip was confirmed to be in the specimen. The lumpectomy cavity was examined. No bleeding was Seen. Several clips were placed the biopsy cavity. The skin was then closed interrupted 3-0 Monocryl suture. Next using clean instruments the sentinel node biopsy performed. A skin incision was made in the exam and then using cautery the clavipectoral fascia was divided. And then using the neoprobe the sentinel node was identified. Several node was then dissected using blunt and sharp dissection. The sentinel node was then sent for frozen section and it was negative for breast cancer. This point the wounds. Hemostasis. There is no bleeding seen. A MAIKOL drains placed in the axilla and brought through separate stab incision. The deep layer was closed 3-0 Vicryl. Skin was closed interrupted 3-0 Monocryl suture. Dermabond dressings was applied. Patient top she will well and sent to recovery in stable condition.
[2019-11-25 11:29] VITALS: TEMP 97.1
[2019-11-25 11:41] VITALS: RESP 16
--- NOTE | 2019-11-25 11:45 | MM ---
EXAMINATION TYPE: MG pre op needle loc LT, MG surgical specimen LT DATE OF EXAM: 11/25/2019 9:53 AM COMPARISON: NONE HISTORY: Left breast malignancy Informed consent was obtained and all the patient's questions were answered. The clip in question was localized mammographically. The standard sterile technique was utilized, as well as appropriate local anesthesia with 1% Lidocaine and bicarbonate. Localization needle followed by placement of a guidewire was performed under mammographic guidance. Verification images demonstrate appropriate deployment of the guidewire. The patient tolerated the procedure well and left the department in stable condition. Specimen radiograph demonstrates the clip in question to reside within the specimen. IMPRESSION: Successful needle localization and open biopsy left breast with pathology results pending . Pathology Results: Malignant A. SENTINEL LYMPH NODE #1, BIOPSY: Lymph node negative for metastasis. CK7 and LEANA immunoperoxidase stains are confirmatory (controls appropriate). B. LEFT BREAST, LUMPECTOMY: Invasive lobular carcinoma and focal atypical ductal hyperplasia. Margins negative for malignancy or ADH. See Surgical Pathology Cancer Case Summary. Recommendation Surgical consult of the left breast. NAHED
[2019-11-25] MEDS ORDERED: LACTATED RINGERS 1,000 ML IV ONE (12:36)
[2019-11-25] MEDS ORDERED: HYDROcodone/APAP 5-325MG 1 EACH TAB ONE (13:07)
[2019-11-25] MEDS ORDERED: HYDROcodone/APAP 5-325MG 1 EACH TAB PO ONE (13:08)
[2019-11-25 13:34] VITALS: BP 148/82; PULSE 76
== END 2019-11-25 14:06 | disposition home health service (06) ==
LOC: OR 06:59
PROVIDERS: ATTEND Surgery
DX: C50.912 Malignant neoplasm of unspecified site of left female breast (principal); K21.9 Gastro-esophageal reflux disease without esophagitis; K76.9 Liver disease, unspecified; F03.90 Unspecified dementia, unspecified severity, without behavioral disturbance, psychotic disturbance, mood disturbance, and anxiety; L40.9 Psoriasis, unspecified; M10.9 Gout, unspecified; K44.9 Diaphragmatic hernia without obstruction or gangrene; Z85.3 Personal history of malignant neoplasm of breast; Z92.3 Personal history of irradiation; Z87.11 Personal history of peptic ulcer disease; Z87.19 Personal history of other diseases of the digestive system; Z86.19 Personal history of other infectious and parasitic diseases; Z90.49 Acquired absence of other specified parts of digestive tract; Z98.42 Cataract extraction status, left eye; Z98.41 Cataract extraction status, right eye; Z96.1 Presence of intraocular lens; Z96.651 Presence of right artificial knee joint; Z96.641 Presence of right artificial hip joint; Z79.890 Hormone replacement therapy; Z79.899 Other long term (current) drug therapy
CPT/HCPCS: 19301; 38525; 88342; 88331; 88307; 88341; 76098; 38792; A9520; J2250; J1644; J1100; J2405; J0690; J2001; J3010; J1885; J2704; J1170

== ENCOUNTER 2020-09-21 17:32 | Emergency (ER) | payer MEDICARE ==
[2020-09-21 17:56] VITALS: TEMP 98.4
--- NOTE | 2020-09-21 18:06 | ED ---
General Adult HPI - General Chief complaint: Fall Stated complaint: fall Time Seen by Provider: 09/21/20 17:38 Source: patient, EMS, RN notes reviewed Mode of arrival: EMS Limitations: no limitations - History of Present Illness Initial comments: Patient is a pleasant 80-year-old female presenting to the emergency Department with left arm injury. Patient tripped and fell on the porch. Patient landed on her left arm. No head injury or loss of consciousness. No neck or back pain. Patient has mild discomfort however does complain of skin injury above the left elbow. Last tetanus immunization less than 5 years - Related Data Home Medications Medication Instructions Recorded Confirmed DULoxetine HCL [Cymbalta] 30 mg PO DAILY 09/08/14 11/25/19 Divalproex Sodium [Depakote] 125 mg PO BID 09/08/14 11/25/19 Famotidine [Pepcid] 20 mg PO HS 09/08/14 11/25/19 Omeprazole [PriLOSEC] 20 mg PO AC-BRKFST 09/08/14 11/25/19 allopurinoL [Zyloprim] 100 mg PO HS 09/08/14 11/25/19 Levothyroxine Sodium [Synthroid] 50 mcg PO DAILY 03/12/17 11/25/19 Folic Acid 0.8 mg PO HS 09/09/18 11/25/19 Calcium Carbonate [Calcium] 600 mg PO BID 10/19/19 11/25/19 Cholecalciferol (Vitamin D3) 125 mcg PO WE 10/19/19 11/25/19 [Vitamin D3] Milk Thistle 150 mg PO BID 10/19/19 11/25/19 Montelukast [Singulair] 10 mg PO DAILY 10/19/19 11/25/19 Previous Rx's Medication Instructions Recorded Docusate [Colace] 100 mg PO BID #20 capsule 11/25/19 HYDROcodone/APAP 5-325MG [Acushnet 1 tab PO Q6HR PRN #10 tab 11/25/19 5-325] Allergies Allergy/AdvReac Type Severity Reaction Status Date / Time No Known Allergies Allergy Verified 09/21/20 17:45 Review of Systems ROS Statement: Those systems with pertinent positive or pertinent negative responses have been documented in the HPI. ROS Other: All systems not noted in ROS Statement are negative. Constitutional: Denies: fever Eyes: Denies: eye pain ENT: Denies: ear pain Respiratory: Denies: cough Cardiovascular: Denies: chest pain Endocrine: Denies: fatigue Gastrointestinal: Denies: abdominal pain Genitourinary: Denies: dysuria Musculoskeletal: Denies: back pain Skin: Reports: as per HPI Neurological: Denies: headache, weakness Past Medical History Past Medical History: Cancer, Dementia, GERD/Reflux, Hypertension, Liver Disease, Skin Disorder Additional Past Medical History / Comment(s): 2016 closed fracture R hipD/T fall. states walks with a limp r/t right leg shorter. PSORIASIS, GOUT, hiatal hernia, skin cancer with removal, breast cancer with lumpectomy and radiation right,(2014) bleeding gastric ulcer 1974, gastritis, esophagitis, diverticulosis, hepatitis unknown type but thinks it may have been hep C from a blood transfusion. History of Any Multi-Drug Resistant Organisms: None Reported Past Surgical History: Appendectomy, Breast Surgery, Cholecystectomy, Hysterectomy, Joint Replacement, Tonsillectomy Additional Past Surgical History / Comment(s): rt leg vein stipping, surgery bleeding ulcer, EGDs with bx and colonoscopies with last time being 08/2014, 01/10/15 R breast lumpectomy, cataracts bilaterally with lens implants, rt knee replacement, bilateral breast reductions. rt femoral head replacement arthroplasty. Past Anesthesia/Blood Transfusion Reactions: No Reported Reaction Additional Past Anesthesia/Blood Transfusion Reaction / Comment(s): Pt received blood in 1974 and contracted hepatitis. Past Psychological History: No Psychological Hx Reported Smoking Status: Never smoker - Past Family History Father Family Medical History: No Reported History Additional Family Medical History / Comment(s): Father lived to be in his early 90's. Mother Family Medical History: No Reported History Additional Family Medical History / Comment(s): Pt does not know mother's health hx well- mother in her 70's General Exam Limitations: no limitations General appearance: alert, in no apparent distress Head exam: Present: atraumatic, normocephalic Eye exam: Present: normal appearance, PERRL, EOMI. Absent: nystagmus ENT exam: Present: normal oropharynx Neck exam: Present: normal inspection. Absent: tenderness Respiratory exam: Present: normal lung sounds bilaterally Cardiovascular Exam: Present: regular rate, normal rhythm GI/Abdominal exam: Present: soft. Absent: tenderness Extremities exam: Present: full ROM, other (Left upper arm abrasions and ecchymosis. Just above the elbow region there is skin tear approximately 2 cm) Neurological exam: Present: alert, CN II-XII intact. Absent: motor sensory deficit Expanded Motor strength exam: RUE: 5, LUE: 5, RLE: 5, LLE: 5 Psychiatric exam: Present: normal affect, normal mood Skin exam: Present: normal color Course Vital Signs 09/21/20 17:41 Temperature 98.4 F Pulse Rate 80 Respiratory 18 Rate Blood Pressure 106/80 O2 Sat by Pulse 98 Oximetry Medical Decision Making - Medical Decision Making Patient reevaluated and resting comfortably in bed. Patient has no clinical intoxication. Patient is alert and oriented 3. Patient denies hitting her head. states he thought she might have however she could be right. Patient refuses head CT despite being offered. Patient is not on blood thinners. There is no signs of head trauma on exam. Neurologically patient is intact . is in agreement with this decision. - Radiology Data Radiology results: image reviewed ((Humerus x-ray reveals no acute process) Disposition Clinical Impression: Fall, Skin tear of elbow without complication Disposition: HOME SELF-CARE Condition: Stable Instructions (If sedation given, give patient instructions): Fall Prevention (ED), Acute Wound Care (ED), Head Injury (ED) Additional Instructions: Twice daily wash area with soap and water, apply antibiotic ointment, and bandage. Return for confusion or weakness, redness, pain, drainage, fever, worsening symptoms or other concerns. Is patient prescribed a controlled substance at d/c from ED?: No Referrals: Amelie Pope DO [Primary Care Provider] - 1-2 days Time of Disposition: 19:18
--- NOTE | 2020-09-21 18:43 | XR ---
RESULT: HISTORY: fall TECHNIQUE: 2 views of the left humerus were obtained. COMPARISON: None. FINDINGS: There is no acute fracture or dislocation. The visualized joint spaces are preserved. IMPRESSION: No acute osseous abnormality.
[2020-09-21 19:45] VITALS: BP 166/78; PULSE 79; RESP 16
== END 2020-09-21 19:45 | disposition home or self-care (01) ==
LOC: EC 17:32
DX: S51.012A Laceration without foreign body of left elbow, initial encounter (principal); S40.022A Contusion of left upper arm, initial encounter; I10 Essential (primary) hypertension; F03.90 Unspecified dementia, unspecified severity, without behavioral disturbance, psychotic disturbance, mood disturbance, and anxiety; M10.9 Gout, unspecified; Z85.828 Personal history of other malignant neoplasm of skin; Z85.3 Personal history of malignant neoplasm of breast; Z87.19 Personal history of other diseases of the digestive system; Z96.653 Presence of artificial knee joint, bilateral; W01.0XXA Fall on same level from slipping, tripping and stumbling without subsequent striking against object, initial encounter; Y92.008 Other place in unspecified non-institutional (private) residence as the place of occurrence of the external cause
CPT/HCPCS: 99284

== ENCOUNTER → 2021-05-18 | Outpatient (CLI) | payer MEDICARE ==
--- NOTE | 2021-05-23 11:56 | MM ---
Reason for exam: screening (asymptomatic). Last mammogram was performed 1 year and 7 months ago. History: Patient is postmenopausal, has history of breast cancer at age 79, and history of other cancer. Malignant MG pre op needle loc LT of the left breast, November 25, 2019. Lumpectomy of the left breast, November 25, 2019. Malignant US biopsy breast VAD LT of the left breast, October 23, 2019. Malignant US breast localization RT of the right breast, January 10, 2015. Malignant US biopsy breast VAD RT of the right breast, December 30, 2014. Benign US RT VAD breast biopsy of the right breast, May 27, 2012. Reductions of both breasts, 1982. Excisional biopsy of the right breast. Took estrogen for 2 years beginning at age 38. Physical Findings: A clinical breast exam by your physician is recommended on an annual basis and results should be correlated with mammographic findings. MG 3D Screening Mammo W/Cad Bilateral CC and MLO view(s) were taken. Prior study comparison: October 23, 2019, left breast MG diagnostic mammo LT wo CAD. October 07, 2019, bilateral MG 3d diag mammo w/cad MAN. There are scattered fibroglandular densities. Previous mammotome biopsy in the right breast. There is chronic nodularity in the left breast medially and anteriorly. Benign vascular calcifications bilaterally. Post surgical deformity right breast. Posterior right CC asymmetric density is unchanged. Post surgical and post therapy change left breast. Short interval follow up left breast to assess for any evolving post therapy changes. ASSESSMENT: Probably benign, BI-RAD 3 RECOMMENDATION: Follow-up diagnostic mammogram of the left breast in 6 months.
== END | disposition home or self-care (01) ==
LOC: RADMAMWWP 13:15
PROVIDERS: ATTEND Family Medicine
DX: Z12.31 Encounter for screening mammogram for malignant neoplasm of breast (principal); Z85.3 Personal history of malignant neoplasm of breast; Z78.0 Asymptomatic menopausal state
CPT/HCPCS: 77063; 77067